=== PATIENT | male | born 1960 | race Caucasian/White ===

== ENCOUNTER 2020-04-30 16:44 | Outpatient (REF) | payer MEDICARE, SELFPAY ==
[2020-04-30 20:04] LABS: ALT 53 U/L (16-63); AST 28 U/L (15-37); Albumin 3.8 g/dL (3.4-5.0); Alkaline Phosphatase 59 U/L (46-116); Anion Gap 8.4 mmol/L (3-11); BUN 16 mg/dL (7-18); CO2 27.6 mmol/L (21.0-32.0); CREATININE 1.13 mg/dL (0.70-1.30); Calcium 9.2 mg/dL (8.5-10.1); Chloride 106 mmol/L (98-107); Glucose 139 mg/dL (74-106); LDL CHOLESTEROL 92 mg/dL (<100); Potassium 4.1 mmol/L (3.5-5.1); Sodium 142 mmol/L (136-145); Total Protein 6.7 g/dL (6.4-8.2)
[2020-04-30 20:12] LABS: HCT 43.8 % (40.0-50.0); HGB 14.8 g/dL (13.5-17.5); Mean Corp. HGB Concentration 33.8 g/dL (32.0-36.0); Mean Corpuscular Hemoglobin 30.7 pg (27.0-33.0); Mean Corpuscular Volume 90.9 fL (80-95); Mean Platelet Volume 10.3 fL (8.0-11.0); Platelet Count 252 x1000/uL (130-400); RBC 4.82 m/cumm (4.50-6.00); RBC Distribution Width 13.2 % (11.8-14.1)
[2020-04-30 20:15] LABS: Bilirubin, Total 0.5 mg/dL (0.2-1.0)
[2020-04-30 20:25] LABS: Hemoglobin A1C 5.7 % (3.8-5.6)
== END 2020-04-30 17:04 ==
LOC: NCHCN 16:44
PROVIDERS: PCP Internal Medicine; Visit Provider Internal Medicine
DX: D86.9 Sarcoidosis, unspecified; I25.5 Ischemic cardiomyopathy; Z00.00 Encounter for general adult medical examination without abnormal findings
CPT/HCPCS: 80053; 83721; 85027; 83036; 85610

== ENCOUNTER 2020-07-10 09:18 | Outpatient (REF) | payer MEDICARE, SELFPAY ==
[2020-07-10 19:04] LABS: HCT 46.6 % (40.0-50.0); HGB 15.2 g/dL (13.5-17.5); MCH 30.4 pg (27.0-33.0); MCHC 32.6 % (32.0-36.0); MCV 93.2 fL (80-95); MPV 10.1 fL (8.0-11.0); Platelet Count 231 10^3/uL (130-400); RDW-SD 44.4 fL
[2020-07-10 19:24] LABS: Anion Gap 6.3 mmol/L (3-11); BUN 20 mg/dL (7-18); CO2 30.7 mmol/L (21.0-32.0); CREATININE 1.24 mg/dL (0.70-1.30); Calcium 9.4 mg/dL (8.5-10.1); Chloride 101 mmol/L (98-107); Estimated GFR 59.88 (mL/min/1.73m2); Glucose 112 mg/dL (74-106); NT-proBNP 334 pg/mL (<300); Sodium 138 mmol/L (136-145)
== END 2020-07-10 09:38 ==
LOC: LBN 09:18
PROVIDERS: PCP Internal Medicine; Visit Provider Internal Medicine Interventional Cardiology
DX: I42.9 Cardiomyopathy, unspecified (principal)
CPT/HCPCS: 80048; 85027; 83880

== ENCOUNTER 2020-09-26 13:02 | Outpatient (REF) | payer MEDICARE, SELFPAY ==
[2020-09-26 21:15] LABS: Anion Gap 6.6 mmol/L (3-11); BUN 17 mg/dL (7-18); CO2 28.4 mmol/L (21.0-32.0); CREATININE 1.18 mg/dL (0.70-1.30); Calcium 9.5 mg/dL (8.5-10.1); Chloride 103 mmol/L (98-107); Glucose 126 mg/dL (74-106); PHOSPHORUS 3.6 mg/dL (2.6-4.7); Potassium 4.8 mmol/L (3.5-5.1); Sodium 138 mmol/L (136-145); TSH 0.47 uIU/mL (0.36-3.74)
[2020-09-26 21:23] LABS: Hemoglobin A1C 5.9 % (<5.7)
== END 2020-09-26 13:22 ==
LOC: NCHCN 13:02
PROVIDERS: PCP Internal Medicine; Visit Provider Internal Medicine
DX: I25.5 Ischemic cardiomyopathy (principal); R73.09 Other abnormal glucose; E66.3 Overweight; Z79.899 Other long term (current) drug therapy
CPT/HCPCS: 80069; 83036; 84443

== ENCOUNTER 2021-08-07 14:48 | Outpatient (REF) | payer MEDICARE, SELFPAY ==
[2021-08-07 20:45] LABS: ALT 31 U/L (16-63); Anion Gap 9.5 mmol/L (3-11); BUN 16 mg/dL (7-18); CO2 28.5 mmol/L (21.0-32.0); Calcium 9.6 mg/dL (8.5-10.1); Chloride 103 mmol/L (98-107); Glucose 100 mg/dL (74-106); LDL CHOLESTEROL 82 mg/dL (<100); Potassium 4.1 mmol/L (3.5-5.1); Sodium 141 mmol/L (136-145)
== END 2021-08-07 14:49 | disposition home or self-care (01) ==
LOC: NCHCN 14:48
PROVIDERS: PCP Internal Medicine; Visit Provider Internal Medicine
DX: I25.5 Ischemic cardiomyopathy (principal); E66.3 Overweight; D86.9 Sarcoidosis, unspecified; I25.2 Old myocardial infarction
CPT/HCPCS: 80048; 83721; 84460

== ENCOUNTER 2022-08-27 14:51 | Outpatient (REF) | payer MEDICARE, SELFPAY ==
[2022-08-27 16:35] LABS: ALT 34 U/L (16-63); Anion Gap 6.4 mmol/L (3-11); BUN 20 mg/dL (7-18); CO2 28.6 mmol/L (21.0-32.0); CREATININE 1.1 mg/dL (0.70-1.30); Calcium 9.1 mg/dL (8.5-10.1); Chloride 102 mmol/L (98-107); Creatine Kinase 94 U/L (39-308); Estimated GFR 76.85 (mL/min/1.73m2); Glucose 98 mg/dL (74-106); NT-proBNP 124 pg/mL (<300); Potassium 3.9 mmol/L (3.5-5.1); Sodium 137 mmol/L (136-145)
[2022-08-27 17:50] LABS: Calculated LDL 56 mg/dL (<100); Cholesterol 172 mg/dL (<200); HDL Cholesterol 46 mg/dL (40-60); Triglyceride 354 mg/dL (<150)
== END 2022-08-27 14:52 | disposition home or self-care (01) ==
LOC: NCHCN 14:51
PROVIDERS: PCP Internal Medicine; Visit Provider Internal Medicine
DX: I25.5 Ischemic cardiomyopathy (principal)
CPT/HCPCS: 80048; 80061; 82550; 83880; 84460

== ENCOUNTER 2023-09-21 15:51 | Outpatient (REF) | payer MEDICARE, SELFPAY ==
[2023-09-21 20:35] LABS: Hemoglobin A1C 5.5 % (<5.7)
[2023-09-21 20:37] LABS: ALT 39 U/L (16-63); Anion Gap 7.1 mmol/L (3-11); BUN 17 mg/dL (7-18); CO2 27.9 mmol/L (21.0-32.0); CREATININE 1.1 mg/dL (0.70-1.30); Calcium 9.9 mg/dL (8.5-10.1); Chloride 103 mmol/L (98-107); Creatine Kinase 92 U/L (39-308); Glucose 107 mg/dL (74-106); Potassium 4.5 mmol/L (3.5-5.1); Sodium 138 mmol/L (136-145)
[2023-09-21 20:49] LABS: Calculated LDL 70 mg/dL (<100); Cholesterol 175 mg/dL (<200); HDL Cholesterol 56 mg/dL (40-60); Triglyceride 246 mg/dL (<150)
== END 2023-09-21 15:52 | disposition home or self-care (01) ==
LOC: NCHCN 15:51
PROVIDERS: PCP Internal Medicine; Visit Provider Internal Medicine
DX: E78.5 Hyperlipidemia, unspecified (principal); I25.5 Ischemic cardiomyopathy; R73.03 Prediabetes
CPT/HCPCS: 80048; 80061; 82550; 83036; 84460

== ENCOUNTER 2024-03-21 11:12 | Outpatient (REF) | payer MEDICARE, SELFPAY ==
[2024-03-21 20:06] LABS: HCT 46.9 % (40.0-50.0); HGB 16.1 g/dL (13.5-17.5); MCH 31.3 pg (27.0-33.0); MCHC 34.3 % (32.0-36.0); MCV 91 fL (80-95); MPV 9.9 fL (8.0-11.0); Platelet Count 279 10^3/uL (130-400); RBC 5.15 10^6/uL (4.36-5.78); RDW 12.8 % (11.8-14.1); RDW-SD 42.7 fL; WBC 6.29 10^3/uL (4.4-10.8)
[2024-03-21 20:41] LABS: ALT 33 U/L (16-63); Anion Gap 9.2 mmol/L (3-11); BUN 10 mg/dL (7-18); CO2 25.8 mmol/L (21.0-32.0); Calcium 9.2 mg/dL (8.5-10.1); Chloride 105 mmol/L (98-107); Creatine Kinase 108 U/L (39-308); Glucose 116 mg/dL (74-106); Potassium 4.2 mmol/L (3.5-5.1); Sodium 140 mmol/L (136-145)
[2024-03-21 21:21] LABS: Calculated LDL 82 mg/dL (<100); Cholesterol 167 mg/dL (<200); HDL Cholesterol 57 mg/dL (40-60); Triglyceride 144 mg/dL (<150)
== END 2024-03-21 11:13 | disposition home or self-care (01) ==
LOC: NCHCN 11:12
PROVIDERS: PCP Internal Medicine; Visit Provider Internal Medicine
DX: I25.5 Ischemic cardiomyopathy (principal); E78.5 Hyperlipidemia, unspecified; Z79.82 Long term (current) use of aspirin
CPT/HCPCS: 80048; 80061; 82550; 85027; 84460

== ENCOUNTER 2024-05-19 19:23 | Outpatient (REF) | payer MEDICARE, SELFPAY ==
--- NOTE | 2024-05-19 16:30 | SKI_PTH ---
PATIENT: Dominic Sandoval LOC: [facility] U#:[id number] AGE/SX: 63/M ROOM: RE05/19/[address]: Kurt Torres : 1960 BED: DIS: 05/19/2024 SPEC #: [id number] RECD: 05/20/24 12:37 STATUS: BRODERICK SEPULVEDA #: [id number] PETER: 05/19/24 16:[address]: Kurt Torres DEPT: Surgical Specimen RECD BY: Minna Clark Tissues: 1 - SKIN BIOPSY(SHAVE/PUNCH) Procedures: SKIN LEVEL 4 Comments: [id number]
== END 2024-05-19 19:24 | disposition home or self-care (01) ==
LOC: NCHCN 19:23
PROVIDERS: PCP Internal Medicine; Visit Provider Internal Medicine
DX: D22.5 Melanocytic nevi of trunk (principal)
CPT/HCPCS: 88305

== ENCOUNTER 2025-05-22 18:25 | Outpatient (REF) | payer MEDICARE, SELFPAY ==
[2025-05-22 19:33] LABS: Anion Gap 9.4 mmol/L (3-11); BUN 19 mg/dL (7-18); CO2 26.6 mmol/L (21.0-32.0); Calcium 9.3 mg/dL (8.5-10.1); Calculated LDL 48 mg/dL (<100); Chloride 103 mmol/L (98-107); Cholesterol 143 mg/dL (<200); Estimated GFR 95.97 (mL/min/1.73m2); Glucose 115 mg/dL (74-106); HDL Cholesterol 42 mg/dL (>or=40); Potassium 4.2 mmol/L (3.5-5.1); Sodium 139 mmol/L (136-145); Triglyceride 266 mg/dL (<150)
[2025-05-22 19:42] LABS: Hemoglobin A1C 5.4 % (<5.7)
== END 2025-05-22 18:26 | disposition home or self-care (01) ==
LOC: NCHCN 18:25
PROVIDERS: PCP Internal Medicine; Visit Provider Internal Medicine
DX: E78.5 Hyperlipidemia, unspecified (principal)
CPT/HCPCS: 80048; 80061; 83036

== ENCOUNTER 2025-06-21 20:07 | Outpatient (REF) | payer MEDICARE, SELFPAY ==
[2025-06-21 21:42] LABS: Abs Immature Grans 0.02 10^3/uL (0.0-0.06); HCT 44.3 % (40.0-50.0); HGB 15.1 g/dL (13.5-17.5); Immature Grans % 0.3 %; MCH 31.0 pg (27.0-33.0); MCHC 34.1 % (32.0-36.0); MCV 91 fL (80-95); MPV 10.1 fL (8.0-11.0); Platelet Count 257 10^3/uL (130-400); RBC 4.87 10^6/uL (4.36-5.78); RDW 12.5 % (11.8-14.1); RDW-SD 41.7 fL; WBC 7.00 10^3/uL (4.4-10.8)
[2025-06-21 22:04] LABS: RBC >50 HPF (0-2)
[2025-06-21 22:08] LABS: Anion Gap 6.2 mmol/L (3-11); BUN 14 mg/dL (7-18); CO2 30.8 mmol/L (21.0-32.0); Calcium 10.0 mg/dL (8.5-10.1); Chloride 101 mmol/L (98-107); Estimated GFR 75.43 (mL/min/1.73m2); Glucose 101 mg/dL (74-106); Potassium 4.4 mmol/L (3.5-5.1); Sodium 138 mmol/L (136-145)
[2025-06-22 18:17] LABS: PSA, Diagnostic 4.4 ng/mL (<=4.5)
== END 2025-06-21 20:08 | disposition home or self-care (01) ==
LOC: NCHCN 20:07
PROVIDERS: PCP Internal Medicine; Visit Provider Physician Assistant
DX: R31.0 Gross hematuria (principal)
CPT/HCPCS: 80048; 81015; 84153; 85025; 87086